=== PATIENT | male | born 1970 | race African-American/Black ===

== ENCOUNTER 2017-05-19 12:37 | Emergency (ER) | payer OTHER ==
[~2017-05-19] VITALS: Ht 175.3 cm; Wt 76.3 kg
[~2017-05-19 12:37] MED LIST: MOTRIN800 MG PO; NORTRIPTYLINE H10 MG PO
[2017-05-19 13:54] LABS: HEMATOCRIT 48.9 % (38.0-50.0); MCH 30.2 PG (29.0-34.0); MCHC 33.3 G/DL (30.0-36.0); MCV 90.6 FL (86-99); MEAN PLAT.VOLUME 10.4 uM^3 (9.0-12.4); PLATELET COUNT 214 K/uL (156-360); RBC DIS.WIDTH-CV 12.7 % (11.8-14.6); RBC DIS.WIDTH-SD 42.2 % (39-53); WHITE BLOOD COUNT 4.3 K/uL (4.1-10.2)
[2017-05-19 14:04] LABS: CHLORIDE 106 mEq/L (99-109); POTASSIUM 4.2 mEq/L (3.7-5.4); SODIUM 143 mEq/L (136-147)
[2017-05-19 14:06] LABS: GLUCOSE 85 mg/dL (70-99)
[2017-05-19 14:07] LABS: ANION GAP 10 MEQ/L (2-14)
[2017-05-19 14:09] LABS: GFR ESTIMATE (CALCULATED) > 59 mL/min/
[2017-05-19 14:10] LABS: UREA NITROGEN (BUN) 18 mg/dL (9-23)
[2017-05-19 14:14] LABS: TROP-I INTERPRETATION NEGATIVE; TROPONIN-I < 0.01 ng/mL (0.0-0.30)
[2017-05-19 16:54] VITALS: BP 130/89
== END 2017-05-19 16:54 | disposition home or self-care (01) ==
LOC: EME 12:37
DX: R00.2 Palpitations (principal); R07.89 Other chest pain; I45.10 Unspecified right bundle-branch block
CPT/HCPCS: 71020; 80048; 84439; 84443; 84484; 85027; 93005; 99281; 99283